=== PATIENT | male | born 1970 | race African-American/Black ===

== ENCOUNTER 2023-10-20 16:52 | Emergency (ER) | payer MEDICAID, OTHER ==
[~2023-10-20] VITALS: Ht 170.2 cm; Wt 71.0 kg
[2023-10-20 17:07] VITALS: O2SAT 100
[2023-10-20 17:26] LABS: BASOPHILS % 0.7 % (0.0-2.0); HEMOGLOBIN. 16.3 g/dL (14.0-18.0); LYMPHOCYTES % 30.8 % (20.0-50.0); MEAN CORPUSCULAR HEMOGLOBIN 31.6 pg (28.0-32.0); MEAN CORPUSCULAR VOLUME 92.9 fL (80.0-94.0); MEAN PLATELET VOLUME 7.7 fl (7.4-10.4); MONOCYTES % 11.9 % (2.0-8.0); NEUTROPHILS % 55.6 % (40.0-76.0); PLATELET 223 x1000/uL (130-400); RED BLOOD CELL COUNT 5.17 mill/uL (4.7-6.1); RED CELL DISTRIBUTION WIDTH 15.1 % (11.6-14.6); WHITE BLOOD COUNT 5.4 x1000/uL (4.5-11.0)
[2023-10-20 17:45] LABS: ALANINE AMINOTRANSFERASE 14 IU/L (10-49); ALBUMIN 5.1 g/dL (3.2-4.8); ASPARTATE AMINOTRANSFERASE 21 IU/L (<34); BILIRUBIN TOTAL 0.5 mg/dL (0.1-1.0); CALCIUM 9.6 mg/dL (8.7-10.4); CARBON DIOXIDE 29 mEq/L (21-32); CHLORIDE 101 mEq/L (98-107); GLUCOSE 101 mg/dL (70-105); PROTEIN TOTAL 8.4 g/dL (6.0-8.3); SODIUM 134 mEq/L (136-145); UREA NITROGEN BLOOD 17 mg/dL (9-23)
[2023-10-20] MEDS: FAMOTIDINE 20MG TABLET PO ONE (18:30)
[2023-10-20] MEDS: MAGNESIUM/ALUMINUM HYDROXIDE/SIMETHICONE 30ML UDC PO ONE (18:30)
[2023-10-20] MEDS: PANTOPRAZOLE 40MG DR TABLET PO ONE (22:02)
[2023-10-20] MEDS ORDERED: PROT40 MT (22:11)
[2023-10-20 22:30] VITALS: BP 117/77; PULSE 68; RESP 16; TEMP 98.5
== END 2023-10-21 01:29 | disposition home or self-care (01) ==
LOC: ER 16:52
DX: K29.20 Alcoholic gastritis without bleeding (principal); F10.10 Alcohol abuse, uncomplicated; F19.90 Other psychoactive substance use, unspecified, uncomplicated; Y90.0 Blood alcohol level of less than 20 mg/100 ml
CPT/HCPCS: 36415; 71045; 80053; 80320; 85025; 99284; G0480

== ENCOUNTER 2024-01-28 15:41 | Emergency (ER) | payer OTHER ==
[~2024-01-28] VITALS: Ht 170.2 cm; Wt 75.0 kg
[~2024-01-28 15:41] MED LIST: PROT40 MT
[2024-01-28 15:44] VITALS: BP 113/69; PULSE 98; RESP 20; TEMP 98; O2SAT 97
[2024-01-28] MEDS ORDERED: SODIUM CHLORIDE 0.9% 1,000 ML IV ONE (16:45)
== END 2024-01-28 19:40 | disposition left against medical advice (07) ==
LOC: ER 15:41
DX: F10.129 Alcohol abuse with intoxication, unspecified (principal); Y90.9 Presence of alcohol in blood, level not specified
CPT/HCPCS: 99283; J7030